=== PATIENT | male | born 1940 | race Caucasian/White ===

== ENCOUNTER 2017-09-02 11:53 | Outpatient (CLI) | payer OTHER ==
--- NOTE | 2017-09-02 15:26 | CT Report ---
CT CHEST WITHOUT CONTRAST: 09/02/2017 CLINICAL INDICATION: Asthma, asbestos related lung disease. TECHNIQUE: Axial CT images of the chest were obtained without intravenous contrast. COMPARISON: No previous exam is available for comparison. FINDINGS: The heart and great vessels demonstrate atherosclerotic calcification. No hilar or mediastinal lymphadenopathy is present. The lungs demonstrate emphysema and peripheral fibrosis. Bilateral calcified pleural plaques are present. No suspicious pulmonary nodule or mass lesion is appreciated. No effusion or pneumothorax is present. Limited evaluation of upper abdominal structures demonstrates normal adrenal glands. Osseous structures demonstrate degenerative changes. IMPRESSION: EMPHYSEMA AND FIBROSIS. CALCIFIED PLEURAL PLAQUING. NO SUSPICIOUS PULMONARY NODULE OR MASS LESION IS APPRECIATED. CT DOSE REDUCTION STATEMENT In accordance with CT protocol optimization, one or more of the following dose reduction techniques were utilized for this exam: automated exposure control, adjustment of mA and/or KV based on patient size, or use of iterative reconstructive technique. TD: 09/02/2017 15:25
== END 2017-09-02 11:54 | disposition home or self-care (01) ==
LOC: DI 11:53
PROVIDERS: ATTEND Family Medicine
DX: J43.9 Emphysema, unspecified (principal); J84.10 Pulmonary fibrosis, unspecified; J92.9 Pleural plaque without asbestos
CPT/HCPCS: 71250

== ENCOUNTER 2018-04-09 13:52 | Outpatient (CLI) | payer OTHER | END 2018-04-09 13:53 | disposition short-term general hospital (02) | LOC: EMS 13:52 | PROVIDERS: ATTEND Surgery | DX: R11.2 Nausea with vomiting, unspecified (principal); R42 Dizziness and giddiness; R41.0 Disorientation, unspecified; R06.02 Shortness of breath | CPT/HCPCS: A0425; A0427 ==

== ENCOUNTER 2020-12-25 10:19 | Outpatient (CLI) | payer OTHER | END 2020-12-25 10:20 | disposition E | LOC: EMS 10:19 ==